=== PATIENT | male | born 1985 | race Hispanic/Latino ===

== ENCOUNTER 2019-07-07 01:09 | Inpatient (IN) | payer OTHER ==
[~2019-07-07] VITALS: Ht 175.3 cm; Wt 101.6 kg
[2019-07-07] MEDS ORDERED: METOCLOPRAMIDE 10 MG/2 ML VIAL ONE (01:23)
[2019-07-07] MEDS ORDERED: ONDANSETRON HCL 4 MG/2 ML VIAL ONE (01:23)
[2019-07-07] MEDS ORDERED: FAMOTIDINE/PF 20 MG/2 ML VIAL IV ONE (01:24)
[2019-07-07 01:27] LABS: BASOPHILS % (AUTO) 0.8 % (0.0-5.0); EOSINOPHILS % (AUTO) 1.6 % (0.0-8.0); HEMATOCRIT 47.1 % (42-54); LYMPHOCYTES % (AUTO) 25.6 % (21.0-51.0); MEAN CORPUSCULAR HEMOGLOBIN 30.7 pg (27.0-33.0); MEAN CORPUSCULAR VOLUME 87.7 fL (79-99); NEUTROPHILS % (AUTO) 59.3 % (40.0-77.0); PLATELET COUNT (AUTO) 417 K/uL (130-400); RED BLOOD CELL COUNT(AUTO) 5.37 MIL/uL (4.50-6.20); RED CELL DISTRIBUTION WIDTH 11.8 % (11.0-15.5); WHITE BLOOD COUNT (AUTO) 8.7 K/uL (4.8-10.8)
[2019-07-07 01:36] LABS: CREATININE 1.4 mg/dL (0.5-1.5); POTASSIUM 4.7 mmol/L (3.5-5.1)
[2019-07-07 01:40] LABS: ALBUMIN 4.1 g/dL (3.5-5.0); BILIRUBIN,TOTAL 0.6 mg/dL (0.2-1.0); TOTAL PROTEIN, SERUM 8.9 g/dL (6.0-8.3)
[2019-07-07 01:44] LABS: INR 0.99 (0.85-1.15); PROTHROMBIN TIME 10.7 SEC (9.6-11.6)
[2019-07-07] MEDS ORDERED: DiphenhydrAMINE HCL 50 MG/ML VIAL ONE (01:49)
[2019-07-07] MEDS ORDERED: KETOROLAC TROMETHAMINE 30MG/ML ONE (01:56)
[2019-07-07] MEDS ORDERED: FENTANYL CITRATE PF 50 MCG/1 ML 2ML VIAL ONE (02:10)
[2019-07-07] MEDS ORDERED: ZOSYN 3.375GM+NS 50ML 50 ML IV ONE (02:10)
[2019-07-07] MEDS ORDERED: HYDRALAZINE HCL 20 MG/ML VIAL IV PRN (02:30)
[2019-07-07] MEDS ORDERED: LACTULOSE 20 GM/30 ML UDCUP PO PRN (02:30)
[2019-07-07] MEDS ORDERED: ONDANSETRON HCL 4 MG/2 ML VIAL IV PRN (02:30)
[2019-07-07] MEDS ORDERED: ACETAMINOPHEN 325 MG TAB PO PRN ×2 (02:30)
[2019-07-07 03:00] VITALS: BP 148/91
[2019-07-07] MEDS: ZOSYN 3.375GM+NS 50ML 50 ML IV SCH ×3 (03:22→19:29)
[2019-07-07] MEDS: SODIUM CHLORIDE 0.9% 1000ML 1,000 ML IV SCH ×3 (03:50→21:48)
[2019-07-07] MEDS: MORPHINE SULFATE 2 MG/ML 1ML SYG IVP PRN (03:50)
[2019-07-07] MEDS: KETOROLAC TROMETHAMINE 15MG/ML IV PRN (06:08)
[2019-07-07 08:00] VITALS: BP 115/71
--- NOTE | 2019-07-07 08:00 | NUR ---
AM SHIFT ASSESSMENT. NPO, PENDING SURGICAL CONSULT WITH DR. SINGH.
--- NOTE | 2019-07-07 08:00 | NUR ---
AM SHIFT ASSESSMENT: AWAKE, DENIES PAIN AT THIS TIME. PENDING A SURGICAL CONSULT
[2019-07-07] MEDS: ENOXAPARIN SODIUM 40 MG/0.4 ML SYRINGE SQ SCH ×2 (09:00→10:59)
[2019-07-07] MEDS: METOCLOPRAMIDE 10 MG/2 ML VIAL IVP SCH ×2 (09:52→20:36)
[2019-07-07] MEDS: FAMOTIDINE/PF 20 MG/2 ML VIAL IV SCH (09:52)
--- NOTE | 2019-07-07 09:52 | NUR ---
WINSTON HELD THIS AM PENDING SURGICAL EVAL.
--- NOTE | 2019-07-07 11:00 | NUR ---
TOMAS HERNANDEZ PA IN TO SEE PT, PLAN FOR SURG. IN AM WILL START ON CLEAR LIQ. TODAY AND NPO AT [facility].
[2019-07-07 12:00] VITALS: BP 119/73
[2019-07-07 16:00] VITALS: BP 116/71
[2019-07-07 20:00] VITALS: BP 129/82
[2019-07-07 23:57] VITALS: BP 125/86
[2019-07-08] VITALS (27 sets, daily range): BP systolic 115–166; BP diastolic 69–98
[2019-07-08] MEDS: ZOSYN 3.375GM+NS 50ML 50 ML IV SCH ×3 (03:21→20:08)
[2019-07-08 05:39] LABS: BASOPHILS % (AUTO) 0.9 % (0.0-5.0); EOSINOPHILS % (AUTO) 2.3 % (0.0-8.0); HEMATOCRIT 41.3 % (42-54); LYMPHOCYTES % (AUTO) 32.8 % (21.0-51.0); MEAN CORPUSCULAR HEMOGLOBIN 30.3 pg (27.0-33.0); MEAN CORPUSCULAR HGB CONC 34.1 g/dL (32.0-36.0); MEAN CORPUSCULAR VOLUME 88.8 fL (79-99); MONOCYTES % (AUTO) 10.2 % (3.0-13.0); NEUTROPHILS % (AUTO) 53.2 % (40.0-77.0); PLATELET COUNT (AUTO) 362 K/uL (130-400); RED BLOOD CELL COUNT(AUTO) 4.65 MIL/uL (4.50-6.20); RED CELL DISTRIBUTION WIDTH 11.8 % (11.0-15.5)
[2019-07-08 06:29] LABS: CREATININE 1.4 mg/dL (0.5-1.5); POTASSIUM 3.6 mmol/L (3.5-5.1)
[2019-07-08] MEDS: ENOXAPARIN SODIUM 40 MG/0.4 ML SYRINGE SQ SCH (08:38)
[2019-07-08] MEDS: FAMOTIDINE/PF 20 MG/2 ML VIAL IV SCH (10:27)
[2019-07-08] MEDS: SODIUM CHLORIDE 0.9% 1000ML 1,000 ML IV SCH (10:27)
[2019-07-08] MEDS: METOCLOPRAMIDE 10 MG/2 ML VIAL IVP SCH ×2 (10:27→20:08)
--- NOTE | 2019-07-08 11:10 | NUR ---
Discharge instructions reviewed. Dressing to Lt side of neck removed, cleansed with iodine and re-dressed with gauze and clear tegaderm. Patient able to verbalized steps of dressing change to neck. Supplies for dressing provided. Per Dr. Lugo's verbal discharge order, patient notified to present to Dr. Lugo's office today to resume chemotherapy. PIV to LFA removed, bleeding controlled and dressing applied. No new medications ordered. Patient assisted to emergency entrance via wheelchair, where sister to transport to Dr. Lugo's office. Addendum: 07/09/19 at 1933 by ROSHNI SALGUERO RN RN Notation made on wrong patient. Please disregard.
[2019-07-08] MEDS ORDERED: DEXAMETHASONE SOD PHOSPHATE 10MG/ML 1ML VIAL ONE (12:01)
[2019-07-08] MEDS ORDERED: LIDOCAINE PF 2% 5ML ABBOJECT ONE (12:01)
[2019-07-08] MEDS ORDERED: GLYCOPYRROLATE 1 MG/5 ML SYRINGE ONE (12:01)
[2019-07-08] MEDS ORDERED: MIDAZOLAM HCL 1 MG/ML 2ML VIAL ONE (12:01)
[2019-07-08] MEDS ORDERED: NEOSTIGMINE 5MG/5ML SYR IV ONE (12:01)
[2019-07-08] MEDS ORDERED: ONDANSETRON HCL 4 MG/2 ML VIAL ONE (12:01)
[2019-07-08] MEDS ORDERED: PROPOFOL 10 MG/ML 20ML VIAL IV ONE (12:01)
[2019-07-08] MEDS ORDERED: FENTANYL CITRATE PF 50 MCG/1 ML 2ML VIAL ONE ×3 (12:02→13:44)
[2019-07-08] MEDS ORDERED: ROCURONIUM 10MG/1ML SYR 10 MG/ML ML ONE (12:02)
[2019-07-08] MEDS ORDERED: BUPIVACAINE/PF 0.5% 10ML VIAL ONE (12:08)
[2019-07-08] MEDS ORDERED: LACTATED RINGERS 1000ML 1,000 ML IV ONE ×2 (12:11→15:42)
--- NOTE | 2019-07-08 12:20 | NUR ---
POTENTIAL FOR INFECTION: CLIPPED ENTIRE ABDOMEN PER LUANN ROGERS.
[2019-07-08] MEDS ORDERED: MEPERIDINE-PF 25 MG/ML SYG ONE (14:10)
[2019-07-08] MEDS: MORPHINE SULFATE 2 MG/ML 1ML SYG IVP PRN ×2 (14:37→20:08)
[2019-07-08] MEDS: ESMOLOL HCL 10 MG/ML 10 ML VIAL ONE ×2 (15:00→15:06)
[2019-07-08] MEDS: KETOROLAC TROMETHAMINE 15MG/ML IV PRN (15:10)
[2019-07-08] MEDS: SIMETHICONE 80 MG TAB.CHEW PO PRN ×2 (15:50→21:43)
[2019-07-08] MEDS: METOPROLOL TARTRATE 1 MG/ML 5ML VIAL IV PRN (15:51)
[2019-07-08] MEDS: LACTATED RINGERS 1000ML 1,000 ML IV SCH (16:00)
[2019-07-08] MEDS: METOPROLOL TARTRATE 25 MG TAB PO SCH ×2 (17:59→20:09)
[2019-07-08 23:02] LABS: APPEARANCE,URINE Clear (CLEAR); BILIRUBIN,URINE Negative (NEGATIVE); COLOR,URINE Yellow (YELLOW); GLUCOSE, URINE (UA) Negative (NEGATIVE); KETONES,URINE 40 mg/dL (NEGATIVE); LEUKOCYTE ESTERASE ,URINE Negative (NEGATIVE); NITRATE,URINE Negative (NEGATIVE); OCCULT BLOOD,URINE Negative (NEGATIVE); PH,URINE 7.5 (5.0-8.0); PROTEIN,URINE Negative (NEGATIVE)
[2019-07-09] MEDS: METOPROLOL TARTRATE 1 MG/ML 5ML VIAL IV PRN (01:14)
[2019-07-09] MEDS: KETOROLAC TROMETHAMINE 15MG/ML IV PRN (01:28)
[2019-07-09 03:51] VITALS: BP 138/83
[2019-07-09] MEDS: ZOSYN 3.375GM+NS 50ML 50 ML IV SCH ×2 (04:18→11:41)
[2019-07-09] MEDS: LACTATED RINGERS 1000ML 1,000 ML IV SCH (05:20)
[2019-07-09 06:07] LABS: HEMATOCRIT 40.8 % (42-54); MEAN CORPUSCULAR HEMOGLOBIN 31.1 pg (27.0-33.0); MEAN CORPUSCULAR HGB CONC 35.5 g/dL (32.0-36.0); MEAN CORPUSCULAR VOLUME 87.6 fL (79-99); PLATELET COUNT (AUTO) 412 K/uL (130-400); RED BLOOD CELL COUNT(AUTO) 4.66 MIL/uL (4.50-6.20); RED CELL DISTRIBUTION WIDTH 11.8 % (11.0-15.5)
[2019-07-09 06:30] LABS: CREATININE 1.1 mg/dL (0.5-1.5); POTASSIUM 3.8 mmol/L (3.5-5.1)
[2019-07-09 07:53] LABS: LYMPHOCYTES % (MANUAL) 13 % (22-44); MAN.DIFF COMMENT-IMPRESSION MANUAL DIFFERENTIAL; MONOCYTES % (MANUAL) 7 % (2-9); SEGMENTED NEUTROPHILS % 80 % (40-70)
[2019-07-09 07:57] LABS: PLATELET MORPHOLOGY COMMENT ADEQUATE
[2019-07-09] MEDS: METOCLOPRAMIDE 10 MG/2 ML VIAL IVP SCH (08:13)
[2019-07-09] MEDS: METOPROLOL TARTRATE 25 MG TAB PO SCH (08:13)
[2019-07-09] MEDS: FAMOTIDINE/PF 20 MG/2 ML VIAL IV SCH (08:13)
[2019-07-09] MEDS: ENOXAPARIN SODIUM 40 MG/0.4 ML SYRINGE SQ SCH (08:14)
[2019-07-09 08:23] VITALS: BP 125/81
--- NOTE | 2019-07-09 11:07 | NUR ---
PRIMITIVO MANAGER INTEL MADE AWARE OF SURGICAL CLEARANCE FOR DISCHARGE. PENDING DISCHARGE ORDER
[2019-07-09 11:08] VITALS: BP 123/83
[2019-07-09] MEDS ORDERED: METO25 PO (14:40)
--- NOTE | 2019-07-09 17:33 | NUR ---
CM NOTE/IA NOT DONE PATIENT DISCHARGED HOME. NO CONCERNS WITH DC PLANNING PER NURSE. Addendum: 07/09/19 at 1733 by MOSHE FOWLER RN CM Amended: Links added.
== END 2019-07-09 15:55 | disposition home or self-care (01) | DRG 418 ==
LOC: EDH 01:09 → EDHIP 02:29 → 3BH 03:07
PROVIDERS: ADMIT Hospitalist; ATTEND Hospitalist
PROC: 0FT44ZZ Resection of Gallbladder, Percutaneous Endoscopic Approach (ICD-10-PCS; principal; 2019-07-08 12:34)
DX: K80.00 Calculus of gallbladder with acute cholecystitis without obstruction (principal); R65.10 Systemic inflammatory response syndrome (SIRS) of non-infectious origin without acute organ dysfunction; I10 Essential (primary) hypertension; G47.33 Obstructive sleep apnea (adult) (pediatric); E66.9 Obesity, unspecified; Z68.33 Body mass index [BMI] 33.0-33.9, adult; Z91.14 Patient's other noncompliance with medication regimen
CPT/HCPCS: 36415; 76705; 80048; 80053; 81003; 82270; 83690; 85025; 85610; 85730; 93005; G0378; J0360; J1100; J1200; J1650; J1885; J2001; J2175; J2250; J2405; J2543; J2704; J2710; J2765; J3010; J3490; J7030; J7120